=== PATIENT | female | born 1970 | race American Indian/Alaskan Native ===

== ENCOUNTER 2017-05-01 08:01 | Emergency (ER) | payer MEDICARE ==
[2017-05-01 08:55] LABS: Basophils % (Auto) 0.8 % (0.0-1.8); Eosinophils % (Auto) 0.5 % (0.0-4.3); Hematocrit 39.9 % (30.3-42.9); Hemoglobin 13.1 gm/dl (10.1-14.3); Mean Corpuscular HGB Conc 33 % (30-34); Mean Corpuscular Hemoglobin 28 pg (28-32); Mean Corpuscular Volume 84 fl (79-97); Platelet Count 196 K/mm3 (140-440); Red Blood Count 4.73 M/mm3 (3.65-5.03); Red Cell Distribution Width 16.1 % (13.2-15.2); White Blood Count 5.2 K/mm3 (4.5-11.0)
[2017-05-01 09:30] LABS: Anion Gap 22 mmol/L; Blood Urea Nitrogen 7 mg/dL (7-17); Calcium 9.2 mg/dL (8.4-10.2); Carbon Dioxide 25 mmol/L (22-30); Chloride 93.2 mmol/L (98-107); Glucose 107 mg/dL (65-100); Sodium 137 mmol/L (137-145)
[2017-05-01 09:35] LABS: Bacteria,Urine 1+ /HPF (Negative); Bilirubin,Urine NEG (Negative); Blood,Urine NEG (Negative); Ketones,Urine 20 mg/dL (Negative); Leukocyte Esterase,Urine SM (Negative); Mucus,Urine 3+ /HPF; Nitrite,Urine NEG (Negative)
[2017-05-01] MEDS ORDERED: ZOFRAN IV ONE (10:31)
[2017-05-01] MEDS ORDERED: NACL 0.9% 1000 ML 1,000 ML IV ONE ×2 (10:31→12:29)
--- NOTE | 2017-05-01 10:31 | Emergency Department Report ---
ED N/V/D HPI - General Chief complaint: Nausea/Vomiting/Diarrhea Stated complaint: VOMITING Time Seen by Provider: 05/01/17 10:02 Source: patient Mode of arrival: Ambulatory Limitations: No Limitations - History of Present Illness Initial comments: Patient is a 47-year-old female with a history of gastric sleeve surgery 6 months ago here with continued nausea vomiting. Patient states she's had intermittent nausea and vomiting since her surgery. She is here without complaint of pain but says she gets nauseous and vomits regularly. She denies fevers and chills. She states she has normal bowel movements. She is able to tolerate occasional liquids. She has tried Zofran and Phenergan and scopolamine patches in the past. MD complaint: nausea, vomiting -: Gradual Description of Vomiting: food contents, watery Associated Abdominal Pain: No Radiation: none Consistency: intermittent Improves with: none Worsens with: eating Context: recent surgery/procedure Associated Symptoms: denies: myalgias, chest pain, cough, diaphoresis, fever/ chills, headaches, loss of appetite, malaise, nausea/vomiting, rash, dysuria, shortness of breath, syncope, weakness - Related Data Previous Rx's Medication Instructions Recorded Last Taken Type Ondansetron [Zofran Odt] 4 mg PO Q4HR PRN #14 tab.rapdis 05/01/17 Unknown Rx Allergies Allergy/AdvReac Type Severity Reaction Status Date / Time No Known Allergies Allergy Unverified 05/01/17 08:15 ED Review of Systems ROS: Stated complaint: VOMITING Other details as noted in HPI Comment: All other systems reviewed and negative Constitutional: weakness. denies: chills, fever Eyes: denies: eye pain, eye discharge, vision change ENT: denies: ear pain, throat pain Respiratory: denies: cough, shortness of breath, wheezing Cardiovascular: denies: chest pain, palpitations Endocrine: no symptoms reported Gastrointestinal: nausea, vomiting. denies: abdominal pain, diarrhea Genitourinary: denies: urgency, dysuria, discharge Musculoskeletal: denies: back pain, joint swelling, arthralgia Skin: denies: rash, lesions Neurological: denies: headache, weakness, paresthesias Psychiatric: denies: anxiety, depression Hematological/Lymphatic: denies: easy bleeding, easy bruising ED Past Medical Hx - Past Medical History Previous Medical History?: Yes Hx Hypertension: Yes Hx Diabetes: Yes Additional medical history: Sleep apnea - Surgical History Past Surgical History?: Yes Additional Surgical History: Tubaligation, Hysterectomy, gastric sleeve - Family History Family history: no significant - Social History Smoking Status: Never Smoker - Medications Home Medications: Home Medications Medication Instructions Recorded Confirmed Last Taken Type Ondansetron [Zofran Odt] 4 mg PO Q4HR PRN #14 tab.rapdis 05/01/17 Unknown Rx ED Physical Exam - General Limitations: No Limitations General appearance: alert, in no apparent distress, obese - Head Head exam: Present: atraumatic, normocephalic - Eye Eye exam: Present: normal appearance - ENT ENT exam: Present: mucous membranes moist - Neck Neck exam: Present: normal inspection - Respiratory Respiratory exam: Present: normal lung sounds bilaterally. Absent: respiratory distress, wheezes, rales - Cardiovascular Cardiovascular Exam: Present: regular rate, normal rhythm. Absent: systolic murmur, diastolic murmur, rubs, gallop - GI/Abdominal GI/Abdominal exam: Present: soft, distended, normal bowel sounds. Absent: tenderness, guarding, rebound - Extremities Exam Extremities exam: Present: normal inspection - Back Exam Back exam: Present: normal inspection - Neurological Exam Neurological exam: Present: alert, oriented X3 - Psychiatric Psychiatric exam: Present: normal affect, normal mood - Skin Skin exam: Present: warm, dry, intact, normal color. Absent: rash ED Course Vital Signs 05/01/17 05/01/17 08:04 13:32 Temperature 98.6 F 97.8 F Pulse Rate 83 62 Respiratory 18 18 Rate Blood Pressure 158/112 Blood Pressure 151/105 [Right] O2 Sat by Pulse 100 100 Oximetry ED Medical Decision Making - Lab Data Result diagrams: 05/01/17 08:41 05/01/17 08:41 Laboratory Results - last 24 hr 05/01/17 05/01/17 05/01/17 08:41 08:41 Unknown WBC 5.2 RBC 4.73 Hgb 13.1 Hct 39.9 MCV 84 MCH 28 MCHC 33 RDW 16.1 H Plt Count 196 Lymph % (Auto) 29.0 [place] % (Auto) 7.2 Eos % (Auto) 0.5 Baso % (Auto) 0.8 Lymph # 1.5 [place] # 0.4 Eos # 0.0 Baso # 0.0 Seg Neutrophils % 62.5 Seg Neutrophils # 3.2 Sodium 137 Potassium 3.0 L Chloride 93.2 L Carbon Dioxide 25 Anion Gap 22 BUN 7 Creatinine 0.7 Estimated GFR > 60 BUN/Creatinine Ratio 10.00 Glucose 107 H Calcium 9.2 Urine Color [place] Urine Turbidity Cloudy Urine pH 6.0 Ur Specific [place] 1.017 Urine Protein 100 mg/dl Urine Glucose (UA) Neg Urine Ketones 20 Urine Blood Neg Urine Nitrite Neg Urine Bilirubin Neg Urine Urobilinogen 4.0 Ur Leukocyte Esterase Sm Urine WBC (Auto) 13.0 H Urine RBC (Auto) 3.0 U Epithel Cells (Auto) 9.0 Urine Bacteria (Auto) 1+ Urine Mucus 3+ - Medical Decision Making 39-year-old female here with complaint of continued nausea since her gastric sleeve surgery. This symptoms of been intermittent. Her clinical exam is unremarkable. She's had multiple evaluations and hasn't recently followed up with her surgeon. Labs show no elevation in her WBC. She does have slight hypokalemia. Plan to treat with IV fluids and Zofran and will give her some oral potassium. Plan to discharge the patient to follow up with her surgeon. Patient was able to tolerate oral juice and fluids. She appears well. Plan to discharge her home. Counseled regarding hypokalemia and need to follow up with surgeon. Portions of this chart were dictated with dictation software. There may be dictation errors contained within this note. Critical care attestation.: If time is entered above; I have spent that time in minutes in the direct care of this critically ill patient, excluding procedure time. ED Disposition Clinical Impression: Nausea and vomiting Disposition: DC-01 TO HOME OR SELFCARE Is pt being admited?: No Does the pt Need Aspirin: No Condition: Stable Instructions: Acute Nausea and Vomiting (ED), Hypokalemia (ED) Additional Instructions: Please follow-up with your surgeon this week. Prescriptions: Ondansetron [Zofran Odt] 4 mg PO Q4HR PRN #14 tab.rapdis PRN Reason: Nausea And Vomiting Referrals: DR DAVE [Other] - 3-5 Days
[2017-05-01] MEDS: KCL 10MEQ/100ML 10 MEQ/100 ML BAG IV SCH ×2 (11:10→12:28)
[2017-05-01 13:34] VITALS: BP 151/105
== END 2017-05-01 14:28 | disposition home or self-care (01) ==
LOC: ED 08:01
DX: R11.2 Nausea with vomiting, unspecified (principal); I10 Essential (primary) hypertension; E11.9 Type 2 diabetes mellitus without complications
CPT/HCPCS: 36415; 80048; 81001; 85025; 96361; 96374; 99283; J2405; J3480; J7030